=== PATIENT | male | born 1955 | race Caucasian/White ===

== ENCOUNTER 2017-01-29 12:21 | Observation (INO) | payer OTHER ==
[~2017-01-29] VITALS: Ht 172.7 cm; Wt 78.0 kg
[2017-01-29] VITALS (7 sets, daily range): BP systolic 145–172; BP diastolic 90–100; PULSE 68–80; RESP 15–18; TEMP 97.7–98; O2SAT 95–98
[~2017-01-29 12:21] MED LIST: ATOR80TA PO; CARV12.5 PO; DIAZ5 PO; DOXY100T PO; GLUCTAB PO; METHO500 PO; NOVONP2 SQ; PROT40TA PO
--- NOTE | 2017-01-29 12:31 | PD ---
Physical Exam Date Seen by Provider: January 29, 2017 Time Seen by Provider: 12:27 Narrative 61 yo male here for evaluation of abnormal blood work. Especifically the creatinine has increased from 1 two weeks ago to 3.6. Was just here for follow up as his metformin was changed to a long acting metformin. No other symptoms. No pain. No weakness. No urinary symptoms. Vitals sign stable. Patient awaiting bed placement. Data Data Last Documented VS Vital Signs Date Time Temp Pulse Resp B/P Pulse Ox O2 Delivery O2 Flow Rate FiO2 01/29/17 12:22 97.7 80 15 155/93 97 MDM Medical Record Reviewed: Yes Supervised Visit with SAVANNAH: No Philip Coombs January 29, 2017 12:31
--- NOTE | 2017-01-29 12:37 | PD ---
HPI Chief Complaint: Medical Clearance Time Seen by Provider: 12:37 Travel History International Travel<30 days: No Contact w/Intl Traveler<30days: No Traveled to known affect area: No History of Present Illness HPI 61-year-old male presents to emergency department after being seen at [facility] with reports of acute renal insufficiency. Patient states he recently switched his metformin from the short acting to the long-acting 2 weeks ago. He also switched from the short acting insulin to the long-acting insulin. Patient states his blood sugars have ranged anywhere from 120-300 over the past 2 weeks. He was seen today at the [facility] and his blood work was repeated showing a creatinine of 3.6. Patient denies any specific complaints other than some mild nausea since taking the long-acting metformin. He denies fever, chills, or other constitutional symptoms. The patient has no previous history of renal failure in the past. He is allergic to lisinopril. PFSH Past Medical History Hx Anticoagulant Therapy: Yes (coumadin) Anxiety: Yes Cardiac Catheterization: Yes Cardiovascular Problems: Yes (htn, [place]; bypass) High Cholesterol: Yes Coronary Artery Disease: Yes Diabetes: Yes (metformin) GERD: Yes Hypertension: Yes Past Surgical History Coronary Artery Bypass Graft: Yes (2008) Coronary Stent: Yes (X1) Social History Alcohol Use: Yes Tobacco Use: Yes (1 PPD) Substance Use: No Allergies-Medications (Allergen,Severity, Reaction): Coded Allergies: Lisinopril (Verified Allergy, Severe, Edema, 01/29/17) Reported Meds & Prescriptions Reported Meds & Active Scripts Active Reported Omeprazole 10 Mg Cap 10 Mg PO DAILY Metformin HCl ER (Metformin HCl) 1,000 Mg [id number] 1,000 Mg PO BID Lantus Inj (Insulin Glargine) 100 Unit/Ml Inj 10 Units SQ HS Coreg (Carvedilol) 12.5 Mg Tab 12.5 Mg PO BID Atorvastatin (Atorvastatin Calcium) 80 Mg Tab 80 Mg PO HS Review of Systems Except as stated in HPI: all other systems reviewed are Neg General / Constitutional: No: Fever Eyes: No: Visual changes HENT: No: Headaches Cardiovascular: No: Chest Pain or Discomfort Respiratory: No: Shortness of Breath Gastrointestinal: No: Abdominal Pain Genitourinary: No: Dysuria Musculoskeletal: No: Pain Skin: No Rash Neurologic: No: Weakness Psychiatric: No: Depression Endocrine: No: Polydipsia Hematologic/Lymphatic: No: Easy Bruising Physical Exam Narrative GENERAL: Patient appears no acute distress. SKIN: Warm and dry. Normal color. Normal turgor. HEAD: Atraumatic. Normocephalic. EYES: Pupils equal and round. No scleral icterus. No injection or drainage. ENT: No nasal bleeding or discharge. Mucous membranes pink and moist. Pharynx is clear. Airway is patent. NECK: Trachea midline. Supple and nontender. CARDIOVASCULAR: Regular rate and rhythm. No murmurs gallops or rubs. RESPIRATORY: No accessory muscle use. Clear to auscultation. Breath sounds equal bilaterally. GASTROINTESTINAL: Abdomen soft, non-tender, nondistended. Hepatic and splenic margins not palpable. No CVA tenderness. MUSCULOSKELETAL: Extremities without clubbing, cyanosis, or edema. No obvious deformities. NEUROLOGICAL: Awake and alert. No obvious cranial nerve deficits. Motor grossly within normal limits. Five out of 5 muscle strength in the arms and legs. Normal speech. PSYCHIATRIC: Appropriate mood and affect; insight and judgment normal. Data Data Last Documented VS Vital Signs Date Time Temp Pulse Resp B/P Pulse Ox O2 Delivery O2 Flow Rate FiO2 01/29/17 12:50 18 97 Room Air 01/29/17 12:38 79 145/90 01/29/17 12:22 97.7 Orders Complete Blood Count With Diff (01/29/17 12:41) Comprehensive Metabolic Panel (01/29/17 12:41) Lipase (01/29/17 12:41) Urinalysis - C+S If Indicated (01/29/17 12:41) Iv Access Insert/Monitor (01/29/17 12:41) Ecg Monitoring (01/29/17 12:41) Oximetry (01/29/17 12:41) Sodium Chlor 0.9% 1000 Ml Inj (Ns 1000 M (01/29/17 12:41) Sodium Chloride 0.9% Flush (Ns Flush) (01/29/17 12:45) Place In Observation (01/29/17 ) Vital Signs (Adult) Q4H (01/29/17 14:45) Activity Oob Ad Ebonie (01/29/17 14:45) Auto Winder / Telemetry .CONTINUOUS (01/29/17 14:45) Intake + Output EFREN.QSHIFT (01/29/17 14:45) Diet 1800 Ada Cons Carb (01/29/17 Dinner) Diet Heart Healthy (01/29/17 Dinner) Sodium Chlor 0.9% 1000 Ml Inj (Ns 1000 M (01/29/17 15:00) Sodium Chloride 0.9% Flush (Ns Flush) (01/29/17 14:45) Sodium Chloride 0.9% Flush (Ns Flush) (01/29/17 21:00) Acetaminophen (Tylenol) (01/29/17 14:45) Ondansetron Inj (Zofran Inj) (01/29/17 14:45) Heparin Inj (Heparin Inj) (01/29/17 15:00) Scd Bilateral/Knee High EFREN.BID (01/29/17 14:45) Naloxone Inj (Narcan Inj) (01/29/17 14:45) Docusate Sodium-Senna (Tammy-Colace) (01/29/17 21:00) Magnesium Hydroxide Liq (Milk Of Magnesi (01/29/17 14:45) Sennosides (Senokot) (01/29/17 14:45) Bisacodyl Supp (Dulcolax Supp) (01/29/17 14:45) Lactulose Liq (Lactulose Liq) (01/29/17 14:45) Bedside Glucose EFREN.AC&HS (01/29/17 14:47) Blood Glucose Goal (Criteria) (01/29/17 14:47) Hypoglycemia 70 Mg/Dl Or < (01/29/17 14:47) Notify Dr: Other (01/29/17 14:47) Dextrose 50% In Harjit (Vial) Inj (D50w (Vi (01/29/17 15:00) Glucagon Inj (Glucagon Inj) (01/29/17 15:00) Insulin Aspart Supplemtl Scale (Novolog (01/29/17 16:00) Admit Order (Ed Use Only) (01/29/17 14:45) Consult Nephrology (01/29/17 ) Labs Laboratory Tests Test 01/29/17 01/29/17 12:40 13:42 White Blood Count 7.5 TH/MM3 Red Blood Count 4.37 MIL/MM3 Hemoglobin 11.8 GM/DL Hematocrit 34.3 % Mean Corpuscular Volume 78.5 FL Mean Corpuscular Hemoglobin 27.1 PG Mean Corpuscular Hemoglobin 34.5 % Concent Red Cell Distribution Width 13.4 % Platelet Count 178 TH/MM3 Mean Platelet Volume 9.3 FL Neutrophils (%) (Auto) 66.7 % Lymphocytes (%) (Auto) 25.2 % Monocytes (%) (Auto) 6.0 % Eosinophils (%) (Auto) 1.8 % Basophils (%) (Auto) 0.3 % Neutrophils # (Auto) 5.0 TH/MM3 Lymphocytes # (Auto) 1.9 TH/MM3 Monocytes # (Auto) 0.4 TH/MM3 Eosinophils # (Auto) 0.1 TH/MM3 Basophils # (Auto) 0.0 TH/MM3 CBC Comment DIFF FINAL Differential Comment Sodium Level 136 MEQ/L Potassium Level 2.8 MEQ/L Chloride Level 95 MEQ/L Carbon Dioxide Level 30.7 MEQ/L Anion Gap 10 MEQ/L Blood Urea Nitrogen 17 MG/DL Creatinine 2.51 MG/DL Estimat Glomerular Filtration 26 ML/MIN Rate Random Glucose 173 MG/DL Calcium Level 9.6 MG/DL Total Bilirubin 0.9 MG/DL Aspartate Amino Transf 13 U/L (AST/SGOT) Alanine Aminotransferase 29 U/L (ALT/SGPT) Alkaline Phosphatase 117 U/L Total Protein 6.7 GM/DL Albumin 3.4 GM/DL Lipase 204 U/L Urine Color YELLOW Urine Turbidity CLEAR Urine pH 5.5 Urine Specific [place] 1.008 Urine Protein NEG mg/dL Urine Glucose (UA) NEG mg/dL Urine Ketones NEG mg/dL Urine Occult Blood NEG Urine Nitrite NEG Urine Bilirubin NEG Urine Urobilinogen LESS THAN 2.0 MG/DL Urine Leukocyte Esterase NEG Urine RBC 1 /hpf Urine WBC 1 /hpf Microscopic Urinalysis Comment CULT NOT INDICATED MDM Medical Decision Making Medical Screen Exam Complete: Yes Emergency Medical Condition: Yes Medical Record Reviewed: Yes Differential Diagnosis Medication reaction. Acute renal insufficiency. Increased creatinine. Type 2 diabetes requiring insulin. Narrative Course Patient is medically stable at time of exam. Labs ordered including CBC, CMP, urinalysis. IV access is obtained patient is given 1000 mL normal saline bolus. CBC is unremarkable except for a hemoglobin 11.8, and a hematocrit of 34.3. CMP shows sodium 136, potassium 2.8, chloride of 95. Creatinine here is 2.51 with an estimated GFR of 26. Random glucose is 173. Patient is discussed and seen with Dr. Brink. She recommends consult thing the senior sas developer on-call regarding this patient. 1400 hrs. call was placed to Dr. Hickey. Patient was discussed with Dr. Hickey, who recommended the patient be admitted under observation by the hospitalist and he can consult regarding his renal function. Call was then placed to the hospitalist patient was discussed. Dr. Pitts agreed to admit the patient to observation. Diagnosis Primary Impression: Acute renal failure Qualified Code: N17.9 - Acute renal failure, unspecified acute renal failure type Additional Impression: Hypokalemia Admitting Information Admitting Physician Requests: Observation Condition: Stable Lester Esteban January 29, 2017 12:37
[2017-01-29] MEDS ORDERED: SODIUM CHLOR 0.9% 1000 ML INJ 1,000 ML IV SCH (12:41)
[2017-01-29] MEDS: SODIUM CHLORIDE 0.9% FLUSH 10 ML FLUSH IV FLUSH PRN ×2 (12:50→13:57)
[2017-01-29 13:19] LABS: BASOPHIL % 0.3 % (0.0-2.0); EOSINOPHIL # 0.1 TH/MM3 (0-0.4); EOSINOPHIL % 1.8 % (0.0-4.0); HEMATOCRIT 34.3 % (39.0-51.0); HEMO FLAGS DIFF FINAL; LYMPH % 25.2 % (9.0-44.0); LYMPHOCYTE # 1.9 TH/MM3 (1.0-4.8); MEAN CELL VOLUME 78.5 FL (80.0-100.0); MEAN CORPUSCULAR HEMOGLOBIN 27.1 PG (27.0-34.0); MEAN CORPUSCULAR HGB CONC 34.5 % (32.0-36.0); NEUT % 66.7 % (16.0-70.0); PLATELET COUNT 178 TH/MM3 (150-450); RED BLOOD COUNT 4.37 MIL/MM3 (4.50-5.90); RED CELL DISTRIBUTION WIDTH 13.4 % (11.6-17.2); WHITE BLOOD COUNT 7.5 TH/MM3 (4.0-11.0)
[2017-01-29] MEDS ORDERED: METF-758 PO (13:35)
[2017-01-29] MEDS ORDERED: ATOR1TAB18 PO (13:35)
[2017-01-29] MEDS ORDERED: OMEP10CA PO (13:35)
[2017-01-29] MEDS ORDERED: CARV12.5 PO (13:35)
[2017-01-29] MEDS ORDERED: LANTUS2P SQ (13:35)
[2017-01-29 13:43] LABS: ALKALINE PHOSPHATASE 117 U/L (45-117); ALT (GPT) 29 U/L (12-78); ANION GAP 10 MEQ/L (5-15); AST (GOT) 13 U/L (15-37); BICARBONATE 30.7 MEQ/L (21.0-32.0); BLOOD UREA NITROGEN 17 MG/DL (7-18); CHLORIDE 95 MEQ/L (98-107); GLOMERULAR FILTRATION RATE 26 ML/MIN (>89); SODIUM (NA) 136 MEQ/L (136-145); TOTAL BILIRUBIN ADULT 0.9 MG/DL (0.2-1.0)
[2017-01-29 13:47] LABS: POTASSIUM 2.8 MEQ/L (3.5-5.1)
[2017-01-29 13:52] LABS: BLOOD, URINE NEG (NEG); COMMENT (UR) CULT NOT INDICATED; CULTURE IF INDICATED CULT NOT INDICATED; GLUCOSE,URINE NEG (NEG); KETONE, URINE NEG (NEG); NITRITE,URINE NEG (NEG); PH, URINE 5.5 (5.0-8.5); URINE COLOR YELLOW (YELLW/STRAW)
[2017-01-29] MEDS ORDERED: MAGNESIUM HYDROXIDE SUSP 30 ML CUP PO PRN (14:45)
[2017-01-29] MEDS ORDERED: ACETAMINOPHEN 325 MG TAB PO PRN (14:45)
[2017-01-29] MEDS ORDERED: LACTULOSE SYRUP 20 GM/30 ML CUP PO PRN (14:45)
[2017-01-29] MEDS ORDERED: ONDANSETRON HCL 4 MG/2 ML VIAL IVP PRN (14:45)
[2017-01-29] MEDS ORDERED: NALOXONE HCL 0.4 MG/ML AMP IV PRN (14:45)
[2017-01-29] MEDS ORDERED: SENNOSIDES 8.6 MG TAB PO PRN (14:45)
[2017-01-29] MEDS ORDERED: SODIUM CHLORIDE 0.9% FLUSH 10 ML FLUSH IV FLUSH PRN (14:45)
[2017-01-29] MEDS ORDERED: BISACODYL 10 MG SUPP RECTAL PRN (14:45)
[2017-01-29] MEDS ORDERED: GLUCAGON 1 MG/ML VIAL OTHER PRN (15:00)
[2017-01-29] MEDS ORDERED: DEXTROSE 50% IN WATER 50 ML VIAL(D50) IV PRN (15:00)
--- NOTE | 2017-01-29 15:01 | PD ---
Physical Exam Narrative GENERAL: Well-nourished, well-developed patient. SKIN: Warm and dry. HEAD: Normocephalic and atraumatic. EYES: No injection or drainage. ENT: No nasal drainage noted. NECK: Supple, trachea midline. CARDIOVASCULAR: Regular rate and rhythm RESPIRATORY: No accessory muscle use. NEUROLOGICAL: Awake and alert. moves extremities, Normal speech. Data Data Last Documented VS Vital Signs Date Time Temp Pulse Resp B/P Pulse Ox O2 Delivery O2 Flow Rate FiO2 01/29/17 12:50 18 97 Room Air 01/29/17 12:38 79 145/90 01/29/17 12:22 97.7 Orders Complete Blood Count With Diff (01/29/17 12:41) Comprehensive Metabolic Panel (01/29/17 12:41) Lipase (01/29/17 12:41) Urinalysis - C+S If Indicated (01/29/17 12:41) Iv Access Insert/Monitor (01/29/17 12:41) Ecg Monitoring (01/29/17 12:41) Oximetry (01/29/17 12:41) Sodium Chlor 0.9% 1000 Ml Inj (Ns 1000 M (01/29/17 12:41) Sodium Chloride 0.9% Flush (Ns Flush) (01/29/17 12:45) Place In Observation (01/29/17 ) Vital Signs (Adult) Q4H (01/29/17 14:45) Activity Oob Ad Ebonie (01/29/17 14:45) Groundskeeper Supervisor / Telemetry .CONTINUOUS (01/29/17 14:45) Intake + Output EFREN.QSHIFT (01/29/17 14:45) Diet 1800 Ada Cons Carb (01/29/17 Dinner) Diet Heart Healthy (01/29/17 Dinner) Sodium Chlor 0.9% 1000 Ml Inj (Ns 1000 M (01/29/17 15:00) Sodium Chloride 0.9% Flush (Ns Flush) (01/29/17 14:45) Sodium Chloride 0.9% Flush (Ns Flush) (01/29/17 21:00) Acetaminophen (Tylenol) (01/29/17 14:45) Ondansetron Inj (Zofran Inj) (01/29/17 14:45) Heparin Inj (Heparin Inj) (01/29/17 14:45) Scd Bilateral/Knee High EFREN.BID (01/29/17 14:45) Naloxone Inj (Narcan Inj) (01/29/17 14:45) Docusate Sodium-Senna (Tammy-Colace) (01/29/17 21:00) Magnesium Hydroxide Liq (Milk Of Magnesi (01/29/17 14:45) Sennosides (Senokot) (01/29/17 14:45) Bisacodyl Supp (Dulcolax Supp) (01/29/17 14:45) Lactulose Liq (Lactulose Liq) (01/29/17 14:45) Bedside Glucose EFREN.AC&HS (01/29/17 14:47) Blood Glucose Goal (Criteria) (01/29/17 14:47) Hypoglycemia 70 Mg/Dl Or < (01/29/17 14:47) Notify Dr: Other (01/29/17 14:47) Dextrose 50% In Harjit (Vial) Inj (D50w (Vi (01/29/17 15:00) Glucagon Inj (Glucagon Inj) (01/29/17 15:00) Insulin Aspart Supplemtl Scale (Novolog (01/29/17 16:00) Admit Order (Ed Use Only) (01/29/17 14:45) Consult Nephrology (01/29/17 ) Labs Laboratory Tests Test 01/29/17 01/29/17 12:40 13:42 White Blood Count 7.5 TH/MM3 Red Blood Count 4.37 MIL/MM3 Hemoglobin 11.8 GM/DL Hematocrit 34.3 % Mean Corpuscular Volume 78.5 FL Mean Corpuscular Hemoglobin 27.1 PG Mean Corpuscular Hemoglobin 34.5 % Concent Red Cell Distribution Width 13.4 % Platelet Count 178 TH/MM3 Mean Platelet Volume 9.3 FL Neutrophils (%) (Auto) 66.7 % Lymphocytes (%) (Auto) 25.2 % Monocytes (%) (Auto) 6.0 % Eosinophils (%) (Auto) 1.8 % Basophils (%) (Auto) 0.3 % Neutrophils # (Auto) 5.0 TH/MM3 Lymphocytes # (Auto) 1.9 TH/MM3 Monocytes # (Auto) 0.4 TH/MM3 Eosinophils # (Auto) 0.1 TH/MM3 Basophils # (Auto) 0.0 TH/MM3 CBC Comment DIFF FINAL Differential Comment Sodium Level 136 MEQ/L Potassium Level 2.8 MEQ/L Chloride Level 95 MEQ/L Carbon Dioxide Level 30.7 MEQ/L Anion Gap 10 MEQ/L Blood Urea Nitrogen 17 MG/DL Creatinine 2.51 MG/DL Estimat Glomerular Filtration 26 ML/MIN Rate Random Glucose 173 MG/DL Calcium Level 9.6 MG/DL Total Bilirubin 0.9 MG/DL Aspartate Amino Transf 13 U/L (AST/SGOT) Alanine Aminotransferase 29 U/L (ALT/SGPT) Alkaline Phosphatase 117 U/L Total Protein 6.7 GM/DL Albumin 3.4 GM/DL Lipase 204 U/L Urine Color YELLOW Urine Turbidity CLEAR Urine pH 5.5 Urine Specific [place] 1.008 Urine Protein NEG mg/dL Urine Glucose (UA) NEG mg/dL Urine Ketones NEG mg/dL Urine Occult Blood NEG Urine Nitrite NEG Urine Bilirubin NEG Urine Urobilinogen LESS THAN 2.0 MG/DL Urine Leukocyte Esterase NEG Urine RBC 1 /hpf Urine WBC 1 /hpf Microscopic Urinalysis Comment CULT NOT INDICATED MDM Supervised Visit with SAVANNAH: Yes Interpretation(s) CBC & BMP Diagram 01/29/17 12:40 Narrative Course I, Dr. torres, have reviewed the advance practice practitioner's documentation and am in agreement, met with the patient face to face, made the diagnosis, and the medical decision making was done by me. *My assessment and Findings: 61 y/o male presents with acute renal failure and hypokalemia, nephrology will follow in hospital and assist in care, mg, phos and ekg added on, patient agrees to admit Diagnosis Primary Impression: Acute renal failure Qualified Code: N17.9 - Acute renal failure, unspecified acute renal failure type Additional Impression: Hypokalemia Admitting Information Admitting Physician Requests: Observation Condition: Stable Nya Torres MD January 29, 2017 15:01
[2017-01-29] MEDS: SODIUM CHLOR 0.9% 1000 ML INJ 1,000 ML IV SCH ×2 (15:16→23:00)
[2017-01-29] MEDS: HEPARIN SODIUM - SQ 10,000 UNITS/ML VIAL SQ SCH (15:16)
[2017-01-29] MEDS: INSULIN ASPART SUPPLEMENTAL SCALE SQ SCH ×2 (15:20→21:00)
--- NOTE | 2017-01-29 15:50 | HHI.HP ---
[facility] Primary [facility] Physician [facility] Admission Diagnosis Increased Creatinine/Low Potassium Diagnoses: Chief Complaint: Abnormal labs Travel History International Travel<30 Days: No Contact w/Intl Traveler <30 Da: No Traveled to Known Affected Are: No History of Present Illness This is a 61-year-old male past medical history type 2 diabetes, coronary disease, history of [place] status post double bypass surgery, hyperlipidemia, and OA who presented with an abnormal creatinine. Patient stated for the past 3 months he has been having problems with his metformin. He stated that he has been having nausea, vomiting, and diarrhea. 2 weeks ago he saw his PCP in which labs were taken and at that time his creatinine was 1.1. He was put on long-acting metformin and had a repeat blood test done today which was abnormal showing creatinine of 3.1. Patient stated that he did do better on the long- acting metformin in terms of his nausea, vomiting and diarrhea. He stated he continues have good urine output. He denied any problems with urination. Patient stated that he does have 2 renal mass that was biopsied and that was negative. Review of Systems Constitutional: DENIES: Diaphoretic episodes, Fatigue, Fever, Weight gain, Weight loss, Chills, Dizziness, Change in appetite, Night Sweats Endocrine: DENIES: Heat/cold intolerance, Polydipsia, Polyuria, Polyphagia Eyes: DENIES: Blurred vision, Diplopia, Eye inflammation, Eye pain, Vision loss , Photosensitivity, Double Vision Ears, nose, mouth, throat: DENIES: Tinnitus, Hearing loss, Vertigo, Nasal discharge, Oral lesions, Throat pain, Hoarseness, Ear Pain, Running Nose, Epistaxis, Sinus Pain, Toothache, Odynophagia Respiratory: DENIES: Apneas, Cough, Snoring, Wheezing, Hemoptysis, Sputum production, Shortness of breath Cardiovascular: DENIES: Chest pain, Palpitations, Syncope, Dyspnea on Exertion , PND, Lower Extremity Edema, Orthopnea, Claudication Gastrointestinal: DENIES: Abdominal pain, Black stools, Bloody stools, Constipation, Diarrhea, Nausea, Vomiting, Difficulty Swallowing, Anorexia Genitourinary: DENIES: Sexual dysfunction, Urinary frequency, Urinary incontinence, Urgency, Hematuria, Dysuria, Nocturia, Penile Discharge, Testicular Pain, Testicular Swelling Musculoskeletal: DENIES: Joint pain, Muscle aches, Stiffness, Joint Swelling, Back pain, Neck pain Integumentary: DENIES: Abnormal pigmentation, Nail changes, Pruritus, Rash Hematologic/lymphatic: DENIES: Bruising, Lymphadenopathy Immunologic/allergic: DENIES: Eczema, Urticaria Neurologic: DENIES: Abnormal gait, Headache, Localized weakness, Paresthesias, Seizures, Speech Problems, Tremor, Poor Balance Psychiatric: DENIES: Anxiety, Confusion, Mood changes, Depression, Hallucinations, Agitation, Suicidal Ideation, Homicidal Ideation, Delusions Past Family Social History Past Medical History Type 2 diabetes Coronary disease History of [place] Osteoarthritis Hyperlipidemia Past Surgical History Cardiac bypass Left knee replacement Right anterior cruciate ligament repair with screws in place Reported Medications Omeprazole 10 Mg Cap 10 Mg PO DAILY Metformin HCl ER (Metformin HCl) 1,000 Mg [id number] 1,000 Mg PO BID Lantus Inj (Insulin Glargine) 100 Unit/Ml Inj 10 Units SQ HS Coreg (Carvedilol) 12.5 Mg Tab 12.5 Mg PO BID Atorvastatin (Atorvastatin Calcium) 80 Mg Tab 80 Mg PO HS Per patient he does not know what medication he is on but he stated that the med list is not updated. Patient denied being on Lantus at the moment. Patient was told by pharmacy techs that this will be updated soon. Allergies: Coded Allergies: Lisinopril (Verified Allergy, Severe, Edema, 01/29/17) Active Ordered Medications Current Medications Sodium Chloride (NS 1000 ml Inj) 1,000 ml @ 1,000 mls/hr Q1H IV Last administered on 01/29/17 13:00; Start 01/29/17 at 12:41; Stop 01/29/17 at 13:40 ; Status DC Sodium Chloride 2 ml 2 ml UNSCH PRN IV FLUSH FLUSH AFTER USING IV ACCESS Last administered on 01/29/17 13:57; Start 01/29/17 at 12:45; Stop 01/29/17 at 15:01 ; Status DC Sodium Chloride (NS 1000 ml Inj) 1,000 ml @ 125 mls/hr Q8H IV Last administered on 01/29/17 15:16; Start 01/29/17 at 15:00 Sodium Chloride (NS Flush) 2 ml UNSCH PRN IV FLUSH FLUSH AFTER USING IV ACCESS ; Start 01/29/17 at 14:45 Sodium Chloride (NS Flush) 2 ml BID IV FLUSH ; Start 01/29/17 at 21:00 Acetaminophen (Tylenol) 650 mg Q4H PRN PO TEMP > 100.4; Start 01/29/17 at 14:45 Ondansetron HCl (Zofran Inj) 4 mg Q6H PRN IVP NAUSEA OR VOMITING; Start at 14:45 Heparin Sodium (Porcine) (Heparin Inj) 5,000 units Q12H SQ Last administered on 01/29/17t 15:16; Start 01/29/17 at 15:00 Naloxone HCl (Narcan Inj) 0.4 mg UNSCH PRN IV SEE LABEL COMMENTS; Start at 14:45 Senna/Docusate Sodium (Tammy-Colace) 1 tab BID PO ; Start 01/29/17 at 21:00 Magnesium Hydroxide (Milk Of Magnesia Liq) 30 ml Q12H PRN PO MILD - MODERATE CONSTIPATION; Start 01/29/17 at 14:45 Sennosides (Senokot) 17.2 mg Q12H PRN PO MODERATE - SEVERE CONSTIPATION; Start 01/29/17 at 14:45 Bisacodyl (Dulcolax Supp) 10 mg DAILY PRN RECTAL SEVERE CONSITIPATION; Start at 14:45 Lactulose (Lactulose Liq) 30 ml DAILY PRN PO SEVERE CONSITIPATION; Start at 14:45 Dextrose (D50w (Vial) Inj) 50 ml UNSCH PRN IV HYPOGLYCEMIA-SEE COMMENTS; Start 01/29/17 at 15:00 Glucagon (Glucagon Inj) 1 mg UNSCH PRN OTHER HYPOGLYCEMIA-SEE COMMENTS; Start 01/29/17 at 15:00 Insulin Aspart (NovoLOG SUPPLEMENTAL SCALE) 1 ACHS SLIDING SCALE SQ ; Start at 16:00 Family History Mom the age of 80 with history of diabetes and cardiac vascular disease. Sister has history of cardiovascular disease. Social History Patient stopped smoking 1 year ago. Prior he smoked one pack per day for 40+ years. Denies any alcohol use. He stated that he occasionally smokes marijuana when his anxious. Physical Exam Vital Signs Vital Signs Date Time Temp Pulse Resp B/P Pulse Ox O2 Delivery O2 Flow Rate FiO2 01/29/17 15:20 97.8 78 17 151/92 98 Room Air 01/29/17 12:50 18 97 Room Air 01/29/17 12:50 17 01/29/17 12:38 79 18 145/90 98 Room Air 01/29/17 12:22 97.7 80 15 155/93 97 Physical Exam GENERAL: This is a well-nourished, well-developed patient, in no apparent distress. SKIN: No rashes, ecchymoses or lesions. Cool and dry. HEAD: Atraumatic. Normocephalic. No temporal or scalp tenderness. EYES: Pupils equal round and reactive. Extraocular motions intact. No scleral icterus. No injection or drainage. ENT: Nose without bleeding, purulent drainage or septal hematoma. Throat without erythema, tonsillar hypertrophy or exudate. Uvula midline. Airway patent. NECK: Trachea midline. No JVD or lymphadenopathy. Supple, nontender, no meningeal signs. CARDIOVASCULAR: Regular rate and rhythm without murmurs, gallops, or rubs. RESPIRATORY: Clear to auscultation. Breath sounds equal bilaterally. No wheezes , rales, or rhonchi. GASTROINTESTINAL: Abdomen soft, non-tender, nondistended. No hepato-splenomegaly , or palpable masses. No guarding. MUSCULOSKELETAL: Extremities without clubbing, cyanosis, or edema. No joint tenderness, effusion, or edema noted. No calf tenderness. Negative Homans sign bilaterally. NEUROLOGICAL: Awake and alert. Cranial nerves II through XII intact. Motor and sensory grossly within normal limits. Five out of 5 muscle strength in all muscle groups. Normal speech. Laboratory Laboratory Tests Test 01/29/17 01/29/17 12:40 13:42 White Blood Count 7.5 Red Blood Count 4.37 Hemoglobin 11.8 Hematocrit 34.3 Mean Corpuscular Volume 78.5 Mean Corpuscular Hemoglobin 27.1 Mean Corpuscular Hemoglobin 34.5 Concent Red Cell Distribution Width 13.4 Platelet Count 178 Mean Platelet Volume 9.3 Neutrophils (%) (Auto) 66.7 Lymphocytes (%) (Auto) 25.2 Monocytes (%) (Auto) 6.0 Eosinophils (%) (Auto) 1.8 Basophils (%) (Auto) 0.3 Neutrophils # (Auto) 5.0 Lymphocytes # (Auto) 1.9 Monocytes # (Auto) 0.4 Eosinophils # (Auto) 0.1 Basophils # (Auto) 0.0 CBC Comment DIFF FINAL Differential Comment Sodium Level 136 Potassium Level 2.8 Chloride Level 95 Carbon Dioxide Level 30.7 Anion Gap 10 Blood Urea Nitrogen 17 Creatinine 2.51 Estimat Glomerular Filtration 26 Rate Random Glucose 173 Calcium Level 9.6 Total Bilirubin 0.9 Aspartate Amino Transf 13 (AST/SGOT) Alanine Aminotransferase 29 (ALT/SGPT) Alkaline Phosphatase 117 Total Protein 6.7 Albumin 3.4 Lipase 204 Urine Color YELLOW Urine Turbidity CLEAR Urine pH 5.5 Urine Specific [place] 1.008 Urine Protein NEG Urine Glucose (UA) NEG Urine Ketones NEG Urine Occult Blood NEG Urine Nitrite NEG Urine Bilirubin NEG Urine Urobilinogen LESS THAN 2.0 Urine Leukocyte Esterase NEG Urine RBC 1 Urine WBC 1 Microscopic Urinalysis Comment CULT NOT INDICATED Result Diagram: 01/29/17 1240 01/29/17 1240 Assessment and Plan Assessment and Plan 61-year-old male with coronary artery disease status post cardiac bypass and type 2 diabetes who presented with abnormal creatinine. Acute renal failure -Most likely a combination due to GI losses and metformin. -Patient medication list is not updated yet. Per extracorporeal technician she will update us soon. -Will get a renal ultrasound. Start patient on IV fluids. Avoid nephrotoxins. Hold metformin. Strict ins and outs. Continue to monitor creatinine/GFR. Hypokalemia -Most likely secondary to GI losses. Will put patient on telemetry. Asymptomatic. We'll give a dose of potassium but will be cautious due to acute renal failure. We'll also check magnesium level. Type 2 diabetes -Will hold metformin secondary to acute renal failure. Start patient on insulin sliding scale. Coronary artery disease/hyperlipidemia -Months medication list is updated Will resume home medication. Dealt with patient's nurse at the bedside in regards to this. DVT prophylaxis -Heparin 5000 units twice a day renally dose. Code Status full Discussed Condition With patient Sehree Garcia MD January 29, 2017 15:50
[2017-01-29] MEDS ORDERED: POTASSIUM CHLORIDE 10 MEQ CONTROLLED RELEASE TAB PO ONE (16:00)
--- NOTE | 2017-01-29 17:35 | RADRPT ---
EXAM DATE/TIME: 01/29/2017 16:21 [place] COMPARISON: No previous studies available for comparison. INDICATIONS : Increased BUN/Creatinine. MEDICAL HISTORY : Hypercholesterolemia. Gastroesophageal reflux disease. Hypertension. Myocardial infarction. Coronary artery disease. Anticoagulant therapy, Coumadin. Diabetes. Depression. Anxiety. SURGICAL HISTORY : CABG. Coronary artery stent. Left knee replacement. ENCOUNTER: Initial ACUITY: 1 day PAIN SCORE: 0/10 LOCATION: Bilateral flank MEASUREMENTS: RIGHT KIDNEY: 13.0 x 5.9 x 5.9 cm LEFT KIDNEY: 13.1 x 5.6 x 5.7 cm FINDINGS: RIGHT KIDNEY: Renal cortex is normal in thickness and echotexture. No hydronephrosis, stone, or mass. There is a cyst along the lower pole measuring 1.4 cm. There is a cyst along the midpole measuring 1.3 cm. LEFT KIDNEY: Renal cortex is normal in thickness and echotexture. No hydronephrosis, stone, or mass. BLADDER: Within normal limits given the degree of distension. CONCLUSION: 1. No evidence of hydronephrosis. 2. There are 2 benign-appearing right renal cyst. Darinel Medina MD on January 29, 2017 at 17:32 Board Certified Radiologist. This report was verified electronically.
--- NOTE | 2017-01-29 18:26 | MB ---
cc: SAMI HOOVER MD DATE OF CONSULTATION: 01/29/2017 REASON FOR CONSULTATION: Elevated BUN and creatinine for evaluation. HISTORY OF PRESENT ILLNESS This is a 61-year-old male with a past medical history of diabetes mellitus, ischemic heart disease, osteoarthritis, hyperlipidemia, history of coronary artery bypass grafting, who came to the hospital because of abnormal labs. I was called to see the patient because of elevated BUN and creatinine. According to the patient he has mild chronic kidney disease and his creatinine was 1.1 before. [facility] has been [facility] and recently moved here from [place]. He went for a routine blood test this morning and he was called by the [facility] to go to the hospital because his creatinine was 3.1. It showed that his creatinine was 2.5 and the potassium as low as 2.8. The patient has had nausea and vomiting going on for the last 2 months and he has not been eating very well. He was on metformin which was changed to extended-release and Toradol causing nausea and vomiting and diarrhea. He also has diarrhea off and on. His appetite was not very good for the last few days and he felt like he was dehydrated. The patient was diagnosed with right renal mass and he was sent to [place] to get a kidney biopsy and according to him the biopsy was negative for any kind of cancer. The patient denies any dysuria, hematuria, did not notice any decrease in the urine output. Denies taking any nonsteroidal anti-inflammatory drugs except if he has any headache he was taking Excedrin but not very often. PAST MEDICAL HISTORY: 1. Hypertension. 2. Diabetes mellitus. 3. Ischemic heart disease. 4. Hyperlipidemia. 5. Chronic kidney disease. 6. Osteoarthritis. PAST SURGICAL HISTORY: 1. History of coronary artery bypass grafting. 2. Left knee replacement. 3. Right inferior cruciate ligament repair. 4. History of renal biopsy. SOCIAL HISTORY: The patient has past history of smoking, stopped one year ago. He has no history of alcoholism. FAMILY HISTORY: Positive for diabetes and cardiac disease from the mother's side. One sister also has cardiac disease. REVIEW OF SYSTEMS: No history of fever, no sore throat. No headache, dizziness or blurring of vision. The patient denies any shortness of breath. No chest pain. He has this nausea, vomiting and decreased appetite going on for the last 2-3 months and not eating very well. He occasionally has loose bowel motion. There is no history of dysuria, hematuria. Occasionally taking Excedrin for headache. ALLERGIES LISINOPRIL MEDICATIONS 1. Normal saline 135 an hour. 2. Pericolace one tablet b.i.d. 3. NovoLog sliding scale ac and hs. 4. Heparin 5000 units subcu q 12 hour. 5. Tylenol as needed. 6. Zofran as needed. 7. Dulcolax as needed. PHYSICAL EXAMINATION: The patient is awake, alert. He is not in acute distress. His last blood pressure is 151/92. There is no hypotensive episode during this admission. VITAL SIGNS: Temperature 97.8, oxygen saturation on room air is 97 to 98%. HEENT: Pupils equal and reactive to light. Nonicteric. Conjunctivae normal. Neck: Supple. JVD is not elevated. Lungs: The patient has bilateral good air entry with occasional wheezing. Heart: S1-S2, regular rhythm. Abdomen: Distended, soft, lax. There is no tenderness, bowel sounds positive. Extremities: There is no pedal edema. INVESTIGATIONS: WBC count is 7.5, hemoglobin 11.8, platelet count 178, sodium 136, potassium 2.8, chloride 95, bicarb 30.7, BUN 17, creatinine 2.5, glucose 173. Total bilirubin 0.9, AST 13, ALT 29, total protein is 6.7, albumin is 3.4 Urinalysis shows no proteinuria. IMAGING STUDIES: The patient had ultrasound of the kidney done and it has not been reported yet. ASSESSMENT/PLAN: 1. Chronic kidney disease with acute kidney injury. 2. Hypokalemia. 3. Dehydration. 4. Diabetes mellitus. 5. History of ischemic heart disease. The patient has acute kidney injury and he has underlying chronic kidney disease most likely because of hypertensive or diabetic renal disease. He does not have a significant proteinuria. We do not know his baseline creatinine, but according to the patient two weeks ago it was 1.1 and now his creatinine is 2.5. There is possibly an element of dehyration. I agree with holding the metformin at present and giving IV fluids. Will follow the urine output, the creatinine and the potassium level. The potassium was replaced. The patient is admitted for observation. If his creatinine improves by tomorrow then possibly he can be discharged with outpatient follow up. Thank you for the consultation. I will follow the patient while he is in the hospital. MD ALFREDO Nolasco/TUCKER /5:04 PM /6:09 PM
[2017-01-29 19:19] LABS: MAGNESIUM 1.6 MG/DL (1.5-2.5)
[2017-01-29] MEDS: SODIUM CHLORIDE 0.9% FLUSH 10 ML FLUSH IV FLUSH SCH (21:53)
[2017-01-29] MEDS: DOCUSATE SODIUM 50 MG/SENNA 8.6 MG TAB PO SCH (21:53)
[2017-01-29] MEDS ORDERED: cloNIDine HCL 0.1 MG TAB PO ONE (22:45)
[2017-01-29] MEDS ORDERED: diphenhydrAMINE HCL 25 MG CAP PO ONE (23:30)
[2017-01-30 00:53] VITALS: BP 174/86; PULSE 88; RESP 18; TEMP 98.4; O2SAT 97
[2017-01-30] MEDS: HEPARIN SODIUM - SQ 10,000 UNITS/ML VIAL SQ SCH ×2 (04:28→15:00)
[2017-01-30 04:33] VITALS: BP 175/76; PULSE 77; RESP 18; TEMP 98; O2SAT 97
[2017-01-30 07:45] VITALS: BP 165/97; PULSE 76; RESP 18; TEMP 98.1; O2SAT 96
[2017-01-30 08:00] VITALS: BP 165/97; PULSE 66; PULSE 76; RESP 18; TEMP 98.1; O2SAT 96
--- NOTE | 2017-01-30 08:02 | HHI.PR ---
Subjective Remarks Follow up for acute renal failure. The patient reports feeling well today. He has been urinating "a lot" overnight, pale yellow urine. He denies any abdominal pain, nausea/vomiting, or diarrhea overnight. He is tolerating oral intake. He has an appointment with his new PCP at the [place] Dr. Gaines tomorrow. He believes his last HgbA1c was 7.1. We discussed stopping his metformin for now and talking with his PCP regarding a new diabetic medication. Objective Vitals Vital Signs Date Time Temp Pulse Resp B/P Pulse Ox O2 Delivery O2 Flow Rate FiO2 01/30/17 04:33 98.0 77 18 175/76 97 01/30/17 00:53 98.4 88 18 174/86 97 01/29/17 19:54 98.0 68 18 170/100 97 01/29/17 18:12 160/90 01/29/17 17:26 98.0 79 18 172/93 95 01/29/17 15:20 97.8 78 17 151/92 98 Room Air 01/29/17 12:50 18 97 Room Air 01/29/17 12:50 17 01/29/17 12:38 79 18 145/90 98 Room Air 01/29/17 12:22 97.7 80 15 155/93 97 I/O 01/29/17 01/29/17 01/29/17 01/30/17 01/30/17 01/30/17 07:00 15:00 23:00 07:00 15:00 23:00 Intake Total 200 ml Balance 200 ml Intake Oral 200 ml Result Diagram: 01/29/17 1240 01/29/17 1240 Imaging Last Impressions Renal Ultrasound 01/29/17 0000 Signed Impressions: Service Date/Time: Sunday, January 29, 2017 16:21 - CONCLUSION: 1. No evidence of hydronephrosis. 2. There are 2 benign-appearing right renal cyst. Darinel Medina MD Objective Remarks GENERAL: Well-nourished, well-developed middle aged male patient in [facility]. SKIN: Warm and dry. No rash. HEENT: Normocephalic. Atraumatic. Pupils equal and round. Mucous membranes pink and moist. NECK: Supple. Trachea midline. CARDIOVASCULAR: Regular rate and rhythm. S1, S2 noted. No murmur appreciated. RESPIRATORY: No accessory muscle use. Clear to auscultation. Breath sounds equal bilaterally. GASTROINTESTINAL: Abdomen soft, non-tender, nondistended. Normoactive bowel sounds x4. MUSCULOSKELETAL: No obvious deformities. Extremities without clubbing, cyanosis , or edema. NEUROLOGICAL: Awake and alert. No obvious cranial nerve deficits. Motor grossly within normal limits. Normal speech. PSYCHIATRIC: Appropriate mood and affect; insight and judgment normal. Medications and IVs Current Medications Medications (Trade) Dose Ordered Sig/Prashant Route Start Time Stop Time Status Last Admin (NS 1000 ml Inj) 1,000 ml @ 125 mls/hr Q8H IV 01/29/17 15:00 01/29/17 23:00 (NS Flush) 2 ml UNSCH PRN IV FLUSH 01/29/17 14:45 (NS Flush) 2 ml BID IV FLUSH 01/29/17 21:00 01/29/17 21:53 (Tylenol) 650 mg Q4H PRN PO 01/29/17 14:45 (Zofran Inj) 4 mg Q6H PRN IVP 01/29/17 14:45 (Heparin Inj) 5,000 units Q12H SQ 01/29/17 15:00 01/30/17 04:28 (Narcan Inj) 0.4 mg UNSCH PRN IV 01/29/17 14:45 (Tammy-Colace) 1 tab BID PO 01/29/17 21:00 01/29/17 21:53 (Milk Of Magnesia Liq) 30 ml Q12H PRN PO 01/29/17 14:45 (Senokot) 17.2 mg Q12H PRN PO 01/29/17 14:45 (Dulcolax Supp) 10 mg DAILY PRN RECTAL 01/29/17 14:45 (Lactulose Liq) 30 ml DAILY PRN PO 01/29/17 14:45 (D50w (Vial) Inj) 50 ml UNSCH PRN IV 01/29/17 15:00 (Glucagon Inj) 1 mg UNSCH PRN OTHER 01/29/17 15:00 (Lipitor) 80 mg HS PO 01/30/17 21:00 UNV (Coreg) 12.5 mg BID PO 01/30/17 09:00 UNV Non-Formulary Medication 10 mg DAILY PO 01/30/17 09:00 UNV (Norvasc) 5 mg DAILY PO 01/30/17 09:00 UNV A/P Problem List: (1) Acute renal failure ICD Code: N17.9 Status: Acute (2) Diabetes mellitus ICD Code: E11.9 Status: Acute (3) HTN (hypertension) ICD Code: I10 Status: Acute (4) Hypokalemia ICD Code: E87.6 Status: Acute Assessment and Plan 61-year-old male with coronary artery disease status post cardiac bypass and type 2 diabetes who presented with abnormal creatinine. Acute renal failure: suspect multifactorial secondary to dehydration with GI losses and metformin use. -Renal U/S unremarkable, shows 2 benign-appearing right renal cyst (patient has had these biopsied previously, confirmed benign). -Continue IV fluids -Discontinued Metformin -Monitor Strict ins and outs, patient voiding well -Avoid nephrotoxins -Continue to monitor BMP -Consulted nephrology, appreciate recommendations, can be discharged today if Cr improves -Cr improved 2.51 --> 1.10 Hypokalemia: secondary to GI losses. -Given po KCl -Magnesium level 1.6, given IV MagSulfate 1G x1 -repeat K improving, still 3.0, given additional IV and po KCl replacement -started on po KCl 20meq daily Type 2 diabetes -Discontinue metformin for now secondary to acute renal failure. -Monitor Accu-cheks and cover with insulin sliding scale. -patient's last HgbA1c 7.1, he has appt tomorrow with PCP Dr. Gaines at the [place], discussed with the patient to talk with PCP regarding new diabetes medication -continued patient's Lantus 10u sq hs at discharge Coronary artery disease/hyperlipidemia -resume home medications including Coreg and Statin Uncontrolled Hypertension: BP 170s/80s. -restart patient's Coreg -added Norvasc 5mg daily -avoid LAUREANO for now with acute renal failure -follow up with PCP tomorrow as scheduled -BP improving DVT prophylaxis -Heparin 5000 units twice a day renally dosed. Discharge Planning Discharge patient to home Condition on discharge: Improved Diabetic/Heart Healthy Diet as tolerated Ad Ebonie activity Rx written: Norvasc 5mg daily, KCl 20 meq daily Follow-up with primary care physician tomorrow at the [place] as scheduled Follow-up with nephrology in 1 week Repeat BMP as outpatient in 3-5days Problem Qualifiers (1) Acute renal failure: Qualified Code: N17.9 - Acute renal failure, unspecified acute renal failure type Kaelyn Banks PA-C January 30, 2017 8:02 am
[2017-01-30 08:23] LABS: POTASSIUM 2.9 MEQ/L (3.5-5.1)
[2017-01-30] MEDS ORDERED: MAGNESIUM SULFATE 1 GM PREMIX 100 ML IV ONE (08:30)
[2017-01-30] MEDS ORDERED: POTASSIUM CHLORIDE 20 MEQ CONTROLLED RELEASE TAB PO ONE (08:30)
[2017-01-30] MEDS ORDERED: AMLO5 PO (08:41)
--- NOTE | 2017-01-30 08:41 | HHI.DCPOC ---
Discharge Care Plan Diagnosis: (1) Acute renal failure (2) Hypokalemia (3) HTN (hypertension) Goals to Promote Your Health * To prevent worsening of your condition and complications * To maintain your health at the optimal level Directions to Meet Your Goals Take your medications as prescribed Follow your dietary instruction Follow activity as directed Keep your appointments as scheduled Take your immunizations and boosters as scheduled If your symptoms worsen call your PCP, if no PCP go to Urgent Care Center or Emergency Room Smoking is Dangerous to Your Health. Avoid second hand smoke Call the 24-hour hour crisis hotline for domestic abuse at Kaelyn Banks PA-C January 30, 2017 8:41 am
[2017-01-30] MEDS: DOCUSATE SODIUM 50 MG/SENNA 8.6 MG TAB PO SCH (09:00)
[2017-01-30] MEDS ORDERED: PANTOPRAZOLE SOD 20 MG DELAYED RELEASE TAB PO SCH (09:00)
[2017-01-30] MEDS: INSULIN ASPART SUPPLEMENTAL SCALE SQ SCH ×2 (09:00→13:19)
[2017-01-30] MEDS: SODIUM CHLORIDE 0.9% FLUSH 10 ML FLUSH IV FLUSH SCH (09:00)
[2017-01-30] MEDS ORDERED: amLODIPine BESYLATE 5 MG TAB PO SCH (09:00)
[2017-01-30] MEDS ORDERED: MAGNESIUM OXIDE 400 MG TAB PO SCH (09:00)
[2017-01-30] MEDS ORDERED: CARVEDILOL 12.5 MG TAB PO SCH (09:00)
[2017-01-30] MEDS: SODIUM CHLOR 0.9% 1000 ML INJ 1,000 ML IV SCH ×2 (09:03→15:00)
--- NOTE | 2017-01-30 09:34 | EKG ---
Date Performed: 01/29/2017 Time Performed: 15:24:45 PTAGE: 61 years EKG: Sinus rhythm POSSIBLE LEFT ATRIAL ENLARGEMENT NONSPECIFIC ST & T-WAVE ABNORMALITY ABNORMAL ECG NO PREVIOUS TRACING DOCTOR: Juan Antonio Cotton Interpretating Date/Time 01/30/2017 09:32:07
[2017-01-30] MEDS: POTASSIUM CHLOR 20 MEQ PREMIX 100 ML IV SCH ×2 (11:12→13:27)
[2017-01-30 11:19] VITALS: BP 155/90; PULSE 81; RESP 18; TEMP 98.2; O2SAT 95
[2017-01-30] MEDS ORDERED: POTASSIUM CHLORIDE 20 MEQ CONTROLLED RELEASE TAB PO SCH (11:45)
--- NOTE | 2017-01-30 11:48 | HHI.NPPN ---
Subjective History of Present Illness 61-year-old male with a past medical history of diabetes mellitus, ischemic heart disease, osteoarthritis, hyperlipidemia, history of coronary artery bypass grafting, who came to the hospital because of abnormal labs. I was called to see the patient because of elevated BUN and creatinine. According to the patient he has mild chronic kidney disease and his creatinine was 1.1 before. He has been following at the [place], send due to abnormal labs. Additional Remarks Patient is alert, has BM times 2 in AM, not eating well, no vomiting, no SOB. Objective Data Data 01/29/17 01/30/17 19:00 07:00 Intake Total 200 ml Balance 200 ml Intake Oral 200 ml Vital Signs Date Time Temp Pulse Resp B/P Pulse Ox O2 Delivery O2 Flow Rate FiO2 01/30/17 11:19 98.2 81 18 155/90 95 01/30/17 08:00 98.1 76 18 165/97 96 01/30/17 08:00 66 01/30/17 07:45 98.1 76 18 165/97 96 01/30/17 04:33 98.0 77 18 175/76 97 01/30/17 00:53 98.4 88 18 174/86 97 01/29/17 19:54 98.0 68 18 170/100 97 01/29/17 18:12 160/90 01/29/17 17:26 98.0 79 18 172/93 95 01/29/17 15:20 97.8 78 17 151/92 98 Room Air 01/29/17 12:50 18 97 Room Air 01/29/17 12:50 17 01/29/17 12:38 79 18 145/90 98 Room Air 01/29/17 12:22 97.7 80 15 155/93 97 -: 01/29/17 1240 01/30/17 0628 Physical Exam General Appearance: No Acute Distress, Comfortable Eyes Eye Exam: Pupils Equal Throat Throat Exam: Oral Mucosa [place] & Moist Neck Neck Exam: Neck Supple Pulmonary Resp Exam: Breath Sounds Equal, No Distress, Rhonchi, Decreased Bases Cardiology CV Exam: Regular, Normal Sinus Rhythm Gastrointestinal/Abdomen GI Exam: Soft, Non-Tender, Bowel Sounds Present Extremeties Extremities Exam: No Edema Neurologic Neuro Exam: Alert, Awake, Oriented Psychiatric Psych Exam: Appropriate Responses Assessment/Plan Assessment Summary: JENNY/Acute Renal Failure, CKD Stage III Electrolyte Assessment: Hypokalemia Problem List: (1) HTN (hypertension) (2) Diabetes mellitus (3) Acute renal failure (4) Hypokalemia Plan Patient has improvement in the Creatinine. K is still low, as per patient he had low K in the past. Now on replacement, will need PO supplement once D/C. Check also urine K level. Hco3 was in normal range. Problem Qualifiers (1) Acute renal failure: Qualified Code: N17.9 - Acute renal failure, unspecified acute renal failure type Cyn Hickey MD January 30, 2017 11:48
[2017-01-30] MEDS ORDERED: POTASSIUM CHLORIDE 10 MEQ CONTROLLED RELEASE TAB PO ONE (14:45)
[2017-01-30 15:37] VITALS: BP 155/92; PULSE 65; RESP 18; TEMP 97.9; O2SAT 97
[2017-01-30 16:05] LABS: HEMOGLOBIN A1a 1.1 %; HEMOGLOBIN A1b 2.3 %; HEMOGLOBIN Ao 80.7 %; HEMOGLOBIN LA1C 2.8 %
[2017-01-30] MEDS ORDERED: POTA20TA5 PO (16:37)
[2017-01-30] MEDS ORDERED: ATORVASTATIN 80 MG TAB PO SCH (21:00)
== END 2017-01-30 17:58 | disposition home or self-care (01) ==
LOC: NEPC 12:21 → NEDA 14:49 → NEPGCP 15:59
PROVIDERS: ADMIT Internal Medicine; ATTEND Internal Medicine
DX: N17.9 Acute kidney failure, unspecified (principal); E86.0 Dehydration; E87.6 Hypokalemia; E11.22 Type 2 diabetes mellitus with diabetic chronic kidney disease; I12.9 Hypertensive chronic kidney disease with stage 1 through stage 4 chronic kidney disease, or unspecified chronic kidney disease; N18.3 Chronic kidney disease, stage 3 (moderate); E78.00 Pure hypercholesterolemia, unspecified; E78.5 Hyperlipidemia, unspecified; I25.10 Atherosclerotic heart disease of native coronary artery without angina pectoris; I25.2 Old myocardial infarction; K21.9 Gastro-esophageal reflux disease without esophagitis; Z95.1 Presence of aortocoronary bypass graft; Z95.5 Presence of coronary angioplasty implant and graft; Z96.652 Presence of left artificial knee joint; Z88.8 Allergy status to other drugs, medicaments and biological substances; Z79.01 Long term (current) use of anticoagulants; Z87.891 Personal history of nicotine dependence
CPT/HCPCS: 76775; 80048; 80053; 81001; 82948; 83036; 83690; 83735; 84100; 84133; 85025; 93005; 96360; 99285; G0378; J1644; J1815; J3475; J3480; J7030